=== PATIENT | male | born 1985 | race Caucasian/White ===

== ENCOUNTER 2017-01-26 06:57 | Emergency (ER) | payer BC ==
[~2017-01-26] VITALS: Ht 185.4 cm; Wt 104.3 kg
[~2017-01-26 06:57] MED LIST: AMOX500C2 PO; AZIT-21 PO; BENZ100C18 PO; CLCX200C PO; CRS350T PO; CYCL-97 PO; CYCL10TA9 PO; GUAI118L10 PO; HYDR-1231 PO; HYDR-229 PO; HYDR-2997 PO; HYDR-3714 PO; HYDR-707 PO; HYDR1CAP2 PO; HYDR1TAB PO; HYDR25CA92 PO; IBP800T PO; LEVO750T6 PO; LORA0.5T34 PO; NAPR-243; OMEP40CA36 PO; OXYC-12 PO; PENI500T PO; PRCD5U PO; PRD20T PO; PROM25SU10 PR; PSEU120T16 PO; SULF1TAB38 PO; TRAM50TA2 PO; TRM50T PO
[2017-01-26] MEDS ORDERED: LIDOCAINE 2% VISCOUS 15 ML UDC PO ONE (07:15)
[2017-01-26] MEDS ORDERED: ANTACID SUSP 30 ML UDC (MYLANTA) PO ONE (07:15)
[2017-01-26 07:16] LABS: BASOPHILS % (AUTO) 1 % (0-10); EOSINOPHILS # (AUTO) 0.1 10^3/uL (0.0-0.3); EOSINOPHILS % (AUTO) 2 % (0-10); LYMPHOCYTES # (AUTO) 2.3 X 10^3 (1.0-4.0); LYMPHOCYTES % (AUTO) 28 % (12-44); MEAN CORPUSCULAR HEMOGLOBIN 31 PG (25-34); MEAN CORPUSCULAR HGB CONC 34 G/DL (32-36); MEAN CORPUSCULAR VOLUME 91 FL (80-99); MEAN PLATELET VOLUME 10.3 FL (7.4-10.4); MONOCYTES # (AUTO) 0.6 X 10^3 (0.0-1.0); MONOCYTES % (AUTO) 8 % (0-12); NEUTROPHILS # (AUTO) 5.1 X 10^3 (1.8-7.8); NEUTROPHILS % (AUTO) 62 % (42-75); PLATELET COUNT 265 10^3/uL (130-400); RED BLOOD COUNT 5.54 10^6/uL (4.35-5.85); WHITE BLOOD COUNT 8.2 10^3/uL (4.3-11.0)
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
[2017-01-26 07:30] LABS: INR 0.9 (0.8-1.4); PROTHROMBIN TIME PATIENT 12.2 SEC (12.2-14.7)
[2017-01-26 07:39] LABS: ALANINE AMINOTRANSFERASE 54 U/L (0-55); ALBUMIN 4.6 G/DL (3.2-4.5); ANION GAP 7 MMOL/L (5-14); ASPARTATE AMINO TRANSFERASE 25 U/L (5-34); BILIRUBIN,TOTAL 0.7 MG/DL (0.1-1.0); BLOOD UREA NITROGEN 17 MG/DL (7-18); BUN/CREATININE RATIO 18; CALCIUM 9.5 MG/DL (8.5-10.1); CARBON DIOXIDE 26 MMOL/L (21-32); CHLORIDE 107 MMOL/L (98-107); CREATININE SERUM 0.94 MG/DL (0.60-1.30); GFR ESTIMATED > 60; GLUCOSE 105 MG/DL (70-105); LIPASE 32 U/L (8-78); MAGNESIUM 2.2 MG/DL (1.8-2.4); SODIUM 140 MMOL/L (135-145); TOTAL PROTEIN 7.3 G/DL (6.4-8.2)
[2017-01-26 07:46] LABS: MYOGLOBIN SERUM 32.7 NG/ML (10.0-92.0)
--- NOTE | 2017-01-26 08:05 | Diagnostic Imaging Report ---
PA and lateral views of the chest Indication: Chest pain Findings: The lungs are clear. The heart size is normal. There is no effusion or pneumothorax The mediastinum and diamond appear unremarkable. Impression: Unremarkable study. Dictated by: Dictated on workstation # [id number]
[2017-01-26 08:34] VITALS: BP 146/93
[2017-01-26] MEDS ORDERED: ACETAMINOPHEN 500 MG TAB (TYLENOL) PO STA (08:35)
[2017-01-26] MEDS ORDERED: TRAM50TA2 PO (10:19)
[2017-01-26 10:33] VITALS: BP 158/91
--- OUTSIDE RECORDS SUMMARY | 2017-02-10 16:40 | XMS REPORT | Continuity of Care Document ---
Author Author [facility] Organization [facility] [address] [facility] Address Unknown Phone Unavailable Allergies Active Description Code Type Severity Reaction Onset Reported/Identified Relationship to Patient Clinical Status Yes naproxen [id number] Drug Allergy Mild N/A 02/17/2010 Yes propoxyphene [id number] Drug Allergy Mild N/A 02/17/2010 Yes prednisone [id number] Drug Allergy Unknown N/A 06/08/2014 Yes naproxen [id number] Drug Allergy Mild MAKES HIM FILL 01/26/2017 Yes prednisone [id number] Drug Allergy Unknown MAKES HIM FEEL 01/26/2017 Medications Problems Date Dx Coded Attending Type Code Diagnosis Diagnosed By 06/12/2014 ROXANA MANUEL, ADAMARIS S Ot 525.11 06/12/2014 ROXANA MANUEL, ADAMARIS S Ot 807.08 06/12/2014 ROXANA MANUEL, ADAMRAIS S Ot 861.21 06/12/2014 ROXANA MANUEL, ADAMARIS S Ot 959.09 06/12/2014 ROXANA MANUEL, ADAMARIS S Ot E812.0 09/11/2014 DENISE BRAVO APRN Ot 786.52 10/18/2014 JENNIFER NGUYEN MD Ot 300.00 10/18/2014 JENNIFER NGUYEN MD Ot 786.52 11/13/2014 DENISE BRAVO HAND SALTER Ot 487.1 11/13/2014 DENISE BRAVO HAND SALTER Ot 786.2 12/25/2014 Ot 465.9 12/25/2014 Ot 786.2 03/17/2015 ARGELIA MANUEL, YUMIKO Argueta Ot 786.52 01/26/2017 JENNIFER NGUYEN MD Ot R07.89 OTHER CHEST PAIN 01/26/2017 JENNIFER NGUYEN MD Ot R07.9 CHEST PAIN, UNSPECIFIED 01/29/2017 JENNIFER NGUYEN MD Ot R07.89 OTHER CHEST PAIN 01/29/2017 JENNIFER NGUYEN MD Ot R07.9 CHEST PAIN, UNSPECIFIED 02/01/2017 PATRICK MANUEL, JENNIFER Bustillos Ot R07.89 OTHER CHEST PAIN 02/01/2017 JENNIFER NGUYEN MD Ot R07.9 CHEST PAIN, UNSPECIFIED Procedures Results Test Result Range Complete blood count (CBC) with automated white blood cell (WBC) differential - 01/26/17 07:07 Blood leukocytes automated count (number/volume) 8.2 10*3/ uL 4.3-11.0 Blood erythrocytes automated count (number/volume) 5.54 10*6 /uL 4.35-5.85 Venous blood hemoglobin measurement (mass/volume) 17.1 g/dL 13.3-17.7 Blood hematocrit (volume fraction) 50 % 40-54 Automated erythrocyte mean corpuscular volume 91 [foz_us] 80-99 Automated erythrocyte mean corpuscular hemoglobin (mass per erythrocyte) 31 pg 25-34 Automated erythrocyte mean corpuscular hemoglobin concentration measurement ( mass/volume) 34 g/dL 32-36 Automated erythrocyte distribution width ratio 13.0 % 10.0-14.5 Automated blood platelet count (count/volume) 265 10*3/uL 130-400 Automated blood platelet mean volume measurement 10.3 [foz_ us] 7.4-10.4 Automated blood neutrophils/100 leukocytes 62 % 42-75 Automated blood lymphocytes/100 leukocytes 28 % 12-44 Blood monocytes/100 leukocytes 8 % 0-12 Automated blood eosinophils/100 leukocytes 2 % 0-10 Automated blood basophils/100 leukocytes 1 % 0-10 Blood neutrophils automated count (number/volume) 5.1 10*3 1.8-7.8 Blood lymphocytes automated count (number/volume) 2.3 10*3 1.0-4.0 Blood monocytes automated count (number/volume) 0.6 10*3 0.0-1.0 Automated eosinophil count 0.1 10*3/uL 0.0-0.3 Automated blood basophil count (count/volume) 0.0 10*3/uL 0.0-0.1 PT panel in platelet poor plasma by coagulation assay - 01/26/17 07:07 Prothrombin time (PT) in platelet poor plasma by coagulation assay 12.2 s 12.2-14.7 INR in platelet poor plasma or blood by coagulation assay 0.9 0.8-1.4 Activated partial thromboplastin time (aPTT) in platelet poor plasma bycoagulation assay - 01/26/17 07:07 Activated partial thromboplastin time (aPTT) in platelet poor plasma bycoagulation assay 27 s 24-35 Fibrin D-dimer FEU measurement in platelet poor plasma (mass/volume) - 07:07 Fibrin D-dimer FEU measurement in platelet poor plasma (mass/volume) < ug/mL 0.00-0.49 Comprehensive metabolic panel - 01/26/17 07:07 Serum or plasma sodium measurement (moles/volume) 140 mmol/ L 135-145 Serum or plasma potassium measurement (moles/volume) 5.0 mmol/L 3.6-5.0 Serum or plasma chloride measurement (moles/volume) 107 mmol /L 98-107 Carbon dioxide 26 mmol/L 21-32 Serum or plasma anion gap determination (moles/volume) 7 mmol/L 5-14 Serum or plasma urea nitrogen measurement (mass/volume) 17 mg/dL 7-18 Serum or plasma creatinine measurement (mass/volume) 0.94 mg /dL 0.60-1.30 Serum or plasma urea nitrogen/creatinine mass ratio 18 NRG Serum or plasma creatinine measurement with calculation of estimated glomerular filtration rate > NRG Serum or plasma glucose measurement (mass/volume) 105 mg/dL 70-105 Serum or plasma calcium measurement (mass/volume) 9.5 mg/dL 8.5-10.1 Serum or plasma total bilirubin measurement (mass/volume) 0.7 mg/dL 0.1-1.0 Serum or plasma alkaline phosphatase measurement (enzymatic activity/volume) 88 U/L 40-136 Serum or plasma aspartate aminotransferase measurement (enzymatic activity/ volume) 25 U/L 5-34 Serum or plasma alanine aminotransferase measurement (enzymatic activity/volume ) 54 U/L 0-55 Serum or plasma protein measurement (mass/volume) 7.3 g/dL 6.4-8.2 Serum or plasma albumin measurement (mass/volume) 4.6 g/dL 3.2-4.5 Magnesium - 01/26/17 07:07 Magnesium 2.2 mg/dL 1.8-2.4 Serum or plasma troponin i.cardiac measurement (mass/volume) - 01/26/17 07:07 Serum or plasma troponin i.cardiac measurement (mass/volume) < ng/mL <0.30 Myoglobin, serum - 01/26/17 07:07 Myoglobin, serum 32.7 ng/mL 10.0-92.0 Lipase - 01/26/17 07:07 Lipase 32 U/L 8-78 Serum or plasma troponin i.cardiac measurement (mass/volume) - 01/26/17 09:11 Serum or plasma troponin i.cardiac measurement (mass/volume) < ng/mL <0.30 Encounters ACCT No. Visit Date/Time Discharge Status Pt. Type Provider Facility Loc./Unit Complaint [id number] 01/26/2017 06:59:00 2016 10:33:00 DIS Emergency PATRICK MANUEL, JENNIFER Bustillos [facility] ER CHEST PAIN [id number] 03/17/2015 16:51:00 2014 19:35:00 DIS Emergency YUMIKO STOUT MD [facility] ER [id number] 11/13/2014 13:16:00 2014 14:40:00 DIS Emergency EDNISE BRAVO APRN [facility] ER [id number] 10/18/2014 16:27:00 2013 17:28:00 DIS Emergency JENNIFER NGUYEN MD [facility] ER [id number] 09/11/2014 18:54:00 2013 20:12:00 DIS Emergency DENISE BRAVO APRN [facility] ER [id number] 06/08/2014 08:24:00 2013 15:35:00 DIS Inpatient ROXANA MANUEL, ADAMARIS Soria [facility] SURGICAL [id number] 12/24/2013 19:02:00 2013 20:08:00 DIS Emergency [id number] 11/09/2013 18:20:00 2013 19:44:00 DIS Emergency [id number] 11/06/2013 11:33:00 2013 13:26:00 DIS Emergency [id number] 08/07/2013 16:47:00 2012 19:50:00 DIS Emergency [id number] 07/30/2013 15:53:00 2012 18:50:00 DIS Emergency [id number] 05/28/2013 16:08:00 2012 23:59:59 CLS Outpatient [id number] 05/07/2013 10:53:00 2012 23:59:59 CLS Outpatient [id number] 12/25/2014 08:03:00 Document Registration
== END 2017-01-26 10:33 | disposition home or self-care (01) ==
LOC: EDUNIT# 06:57 → ER 06:59
DX: R07.89 Other chest pain (principal)
CPT/HCPCS: 36415; 71020; 80053; 83690; 83735; 83874; 84484; 85025; 85379; 85610; 85730; 93005; 93041

== ENCOUNTER 2022-06-20 07:05 | Emergency (ER) | payer SELFPAY ==
[~2022-06-20] VITALS: Ht 185.5 cm; Wt 102.5 kg
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
--- NOTE | 2022-06-20 08:10 | Diagnostic Imaging Report ---
INDICATION: Right knee pain. AP, oblique, and lateral views of the right knee are obtained. FINDINGS: No fracture or acute bony abnormality seen. Joint spaces are unremarkable. IMPRESSION: Negative right knee. Dictated by: Dictated on workstation # [id number]
[2022-06-20] MEDS ORDERED: MELO15TA39 PO ×2 (08:19→08:20)
[2022-06-20] MEDS ORDERED: TRAM-42 PO ×2 (08:19→08:20)
[2022-06-20 08:25] VITALS: BP 137/88
== END 2022-06-20 08:25 | disposition home or self-care (01) ==
LOC: EDUNIT# 07:05 → ER 07:07
DX: S83.91XA Sprain of unspecified site of right knee, initial encounter (principal); F17.200 Nicotine dependence, unspecified, uncomplicated; W18.30XA Fall on same level, unspecified, initial encounter; X50.1XXA Overexertion from prolonged static or awkward postures, initial encounter
CPT/HCPCS: 73562; 99282; L1830

== ENCOUNTER 2023-06-25 05:40 | Emergency (ER) | payer OTHER ==
[~2023-06-25] VITALS: Ht 185.5 cm; Wt 90.8 kg
[~2023-06-25 05:40] MED LIST changes: +MELO15TA39 PO; +TRAM-42 PO
[2023-06-25] MEDS ORDERED: LACTATED RINGERS 1,000 ML 1,000 ML IV ONE (07:00)
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
[2023-06-25 07:03] VITALS: BP 125/84
== END 2023-06-25 08:06 | disposition home or self-care (01) ==
LOC: EDUNIT# 05:40 → ER 05:43
DX: T67.5XXA Heat exhaustion, unspecified, initial encounter (principal); Z28.310 Unvaccinated for COVID-19; X30.XXXA Exposure to excessive natural heat, initial encounter